=== PATIENT | male | born 1945 | race Caucasian/White ===

== ENCOUNTER → 2017-01-18 | Outpatient (CLI) | payer OTHER | LOC: KOH-I 14:27 | DX: M25.562 Pain in left knee (principal); G89.29 Other chronic pain; S83.232A Complex tear of medial meniscus, current injury, left knee, initial encounter; M71.22 Synovial cyst of popliteal space [Baker], left knee | CPT/HCPCS: 73721 ==

== ENCOUNTER 2017-02-03 18:10 | Emergency (ER) | payer OTHER | END 2017-02-03 18:45 | disposition home or self-care (01) | LOC: ER1 18:10 | DX: S90.562A Insect bite (nonvenomous), left ankle, initial encounter (principal); E11.9 Type 2 diabetes mellitus without complications; I10 Essential (primary) hypertension; I25.810 Atherosclerosis of coronary artery bypass graft(s) without angina pectoris; Z88.1 Allergy status to other antibiotic agents; Z95.1 Presence of aortocoronary bypass graft; W57.XXXA Bitten or stung by nonvenomous insect and other nonvenomous arthropods, initial encounter | CPT/HCPCS: 99283 ==

== ENCOUNTER → 2020-09-03 | Outpatient (CLI) | payer OTHER ==
[~2020-09-03] MED LIST: ANTIVERT 25MG T25 MG PO; Voltaren Gel 1 % TOP
== END ==
LOC: RAD 16:17
DX: M25.552 Pain in left hip (principal); M16.12 Unilateral primary osteoarthritis, left hip
CPT/HCPCS: 73502

== ENCOUNTER → 2020-09-22 | Outpatient (CLI) | payer OTHER | LOC: EMI 13:00 | DX: M25.559 Pain in unspecified hip (principal); M16.12 Unilateral primary osteoarthritis, left hip | CPT/HCPCS: 73721 ==

== ENCOUNTER → 2020-10-27 | Outpatient (CLI) | payer OTHER | LOC: US 09:48 | DX: I71.4 Abdominal aortic aneurysm, without rupture (principal) | CPT/HCPCS: 93979 ==

== ENCOUNTER → 2020-11-16 | Outpatient (CLI) | payer OTHER | LOC: CT 12:52 | DX: I71.4 Abdominal aortic aneurysm, without rupture (principal); M24.159 Other articular cartilage disorders, unspecified hip; K80.20 Calculus of gallbladder without cholecystitis without obstruction; K57.30 Diverticulosis of large intestine without perforation or abscess without bleeding | CPT/HCPCS: 36415; 82565; Q9967 ==

== ENCOUNTER 2021-02-09 16:39 | Emergency (ER) | payer OTHER ==
[~2021-02-09 16:39] MED LIST changes: -Voltaren Gel 1 % TOP
[2021-02-09] MEDS ORDERED: Voltaren Gel 1 % TOP (17:05)
== END 2021-02-09 17:16 | disposition home or self-care (01) ==
LOC: ER1 16:39
DX: M79.671 Pain in right foot (principal); E11.9 Type 2 diabetes mellitus without complications; J44.9 Chronic obstructive pulmonary disease, unspecified; I51.9 Heart disease, unspecified; Z88.2 Allergy status to sulfonamides; Z88.8 Allergy status to other drugs, medicaments and biological substances
CPT/HCPCS: 99283

== ENCOUNTER 2021-07-07 00:39 | Emergency (ER) | payer OTHER ==
[~2021-07-07 00:39] MED LIST changes: +Voltaren Gel 1 % TOP
== END 2021-07-07 01:30 | disposition home or self-care (01) ==
LOC: ER1 00:39
DX: S63.91XA Sprain of unspecified part of right wrist and hand, initial encounter (principal); S60.811A Abrasion of right wrist, initial encounter; I10 Essential (primary) hypertension; E11.9 Type 2 diabetes mellitus without complications; J44.9 Chronic obstructive pulmonary disease, unspecified; W20.8XXA Other cause of strike by thrown, projected or falling object, initial encounter
CPT/HCPCS: 73110; 73130; 99283